=== PATIENT | female | born 1940 | race Caucasian/White ===

== ENCOUNTER 2023-03-12 06:20 | Day surgery (SDC) | payer OTHER ==
[~2023-03-12] VITALS: Ht 167.6 cm; Wt 82.6 kg
[2023-03-12] MEDS ORDERED: fentaNYL CITRATE/PF 100 MCG/2 ML AMP ONE (07:03)
[2023-03-12] MEDS ORDERED: MIDAZOLAM HCL 5 MG/5 ML VIAL ONE (07:04)
[2023-03-12] MEDS ORDERED: PROPOFOL 200MG/ 20ML VIAL (DIPRIVAN) IV ONE (09:10)
[2023-03-12] MEDS ORDERED: LIDOCAINE 2%, 20 ML MDV INJ ONE (09:10)
[2023-03-12 13:12] VITALS: BP_SYST 120
== END 2023-03-12 10:10 | disposition home or self-care (01) ==
LOC: SDS 06:20 → SMU 06:21 → SDS 10:10
PROVIDERS: ATTEND Internal Medicine Gastroenterology
DX: R13.14 Dysphagia, pharyngoesophageal phase (principal); K44.9 Diaphragmatic hernia without obstruction or gangrene; K22.2 Esophageal obstruction; I10 Essential (primary) hypertension; Z91.040 Latex allergy status; E78.5 Hyperlipidemia, unspecified; K21.9 Gastro-esophageal reflux disease without esophagitis; E11.40 Type 2 diabetes mellitus with diabetic neuropathy, unspecified; Z79.84 Long term (current) use of oral hypoglycemic drugs; Z79.899 Other long term (current) drug therapy; Z20.822 Contact with and (suspected) exposure to COVID-19
CPT/HCPCS: 43245; 43249; 82962; 93005; 71045; J2001; J2704; J2250; J3010